=== PATIENT | female | born 2000 | race Caucasian/White ===

== ENCOUNTER 2020-03-04 10:53 | Emergency (ER) | payer OTHER, SELFPAY ==
--- NOTE | 2020-03-04 11:00 | ED.GENADULT ---
HPI - General Adult General Chief complaint: Skin/Abscess/Foreign Body Stated complaint: boil in right armpit Source: patient, family and RN notes reviewed Mode of arrival: ambulatory Limitations: no limitations History of Present Illness HPI narrative: This is a 19 years old female presents to the office for an evaluation of boil under her armpit. Symptoms began three days ago with small boil; which has increase in size since yesterday. Complains of pain with touching. Mother has tried warm compress over affected area; but patient does not let it stay on her due to pain. She is currently on bactrim for UTI. She has down syndrome; no verbal communicate; however she does follow command. Related Data Home Medications Medication Instructions Recorded Confirmed azathioprine 50 mg PO DAILY 03/04/20 03/04/20 clobazam 10 mg PO DAILY 03/04/20 03/04/20 dextroamphetamine-amphetamine 20 mg PO DAILY 03/04/20 03/04/20 guanfacine 1 mg PO DAILY 03/04/20 03/04/20 insulin glargine [Basaglar KwikPen unit SUBCUT 03/04/20 U-100 Insulin] insulin lispro [Admelog U-100 03/04/20 Insulin lispro] lamotrigine 100 mg PO DAILY 03/04/20 03/04/20 methsuximide [Celontin] 300 mg PO DAILY 03/04/20 03/04/20 pravastatin 10 mg PO DAILY 03/04/20 03/04/20 sertraline 50 mg PO DAILY 03/04/20 03/04/20 sulfamethoxazole-trimethoprim 1 tablet PO BID 03/04/20 03/04/20 tacrolimus 1 mg PO DAILY 03/04/20 03/04/20 Allergies Allergy/AdvReac Type Severity Reaction Status Date / Time UNKNOWN ANTIBIOTICS Allergy Uncoded 08/13/12 13:36 Review of Systems Review of Systems: Narrative: CONSTITUTIONAL: Denies fever RESPIRATORY: Denies difficulty breathing GASTROINTESTINAL: Denies abdominal pain, nausea, vomiting GENITOURINARY:Currently on bactrim for UTI SKIN: Reports painful boil under her armpit; admits to history of similar symptoms in the past; but never had to drain it. NEUROLOGIC:She has down syndrome PMFSH Past Medical History Medical History (Updated 03/04/20 @ 11:38 by YVROSE Gerber) ADHD Anxiety Diabetes Down syndrome Seizure Social History Social History (Updated 03/04/20 @ 11:39 by YVROSE Gerber) Smoking status: Never smoker Comments At time of signature, I agree with nursing past medical, surgical, social and family history. There is no relevant family history pertinent to the presenting complaint. Exam Narrative: Exam Narrative: GENERAL: This is a well-nourished, well-developed patient, in no apparent distress. CARDIOVASCULAR: Regular rate and rhythm without murmurs, gallops, or rubs. RESPIRATORY: Clear to auscultation. Breath sounds equal bilaterally. No wheezes, rales, or rhonchi. GASTROINTESTINAL: Abdomen soft, non-tender, nondistended. Bowel sounds are active. No hepato-splenomegaly, or palpable masses. No guarding. SKIN: right below her armpit noted fluctuate lesion, erythema, edematous and tender to palpation. NEURO: awake, alert. Steady gait [place] Coma Scale Eye Opening: Spontaneous 4 [place] Coma Scale Motor: Obeys Commands 6 [place] Coma Scale Verbal: Oriented 5 Procedures Abscess I/D upper extremity: Date of Incision: 03/04/20 Time of Incision: 11:03 Side (if applicable): right Sedation/analgesia: none Local Anesthetic: lidocaine 1% Amount of anesthesia used (mL): 2 Technique: incised with #11 blade Irrigation: Yes Packing used?: iodoform I&D Results: Pus (moderate amount of it) and Blood Abcess I&D Additional Comments: wound is cleaned with Betadine prior to procedure. Wound care and packing provide to patient's mother whom has done it in the past for patient for other wound related. Medical Decision Making Differential Diagnosis Differential Diagnosis: abscess, cellulitis, foliculitis Critical Care Time Critical Care Time Critical Care Time: No Discharge Plan Discharge Clinical Impression: Abscess of skin or subcutane
[2020-03-04 11:28] VITALS: BP 121/73; PULSE 100; RESP 18; TEMP 37.2; O2SAT 98
== END 2020-03-04 11:39 | disposition home or self-care (01) ==
PROVIDERS: Emergency Provider Nurse Practitioner; PCP Family Medicine
DX: L02.411 Cutaneous abscess of right axilla (principal); F90.9 Attention-deficit hyperactivity disorder, unspecified type; F41.9 Anxiety disorder, unspecified; F32.9 Major depressive disorder, single episode, unspecified; G40.909 Epilepsy, unspecified, not intractable, without status epilepticus; Q90.9 Down syndrome, unspecified
CPT/HCPCS: 10061; 87070; 87205; 99213; G0463

== ENCOUNTER 2020-03-09 11:41 | Emergency (ER) | payer OTHER, SELFPAY ==
[2020-03-09 11:46] VITALS: BP 103/66; PULSE 84; RESP 18; TEMP 36.1; O2SAT 99
--- NOTE | 2020-03-09 11:57 | ED.SKABFB ---
HPI - Skin/Abscess/Foreign Bdy General Chief complaint: Skin/Abscess/Foreign Body Stated complaint: pain in underarm Time Seen by Provider: 03/09/20 11:51 Source: patient and RN notes reviewed Mode of arrival: ambulatory Limitations: no limitations History of Present Illness HPI narrative: 19-year-old female with developmental disability presents with concern for painful, red area under her right arm. Reports she was seen in this clinic on Friday and had an abscess drained in that area. Reports she had been on a course of Bactrim for a UTI prior to having the wound drained, finished the Bactrim several days ago. Mother reports the wound drained the day after the I&D, has not drained since. Reports fever yesterday. Patient reports pain in the area. MD complaint: abscess/boil Related Data Home Medications Medication Instructions Recorded Confirmed azathioprine 50 mg PO DAILY 03/04/20 03/09/20 clobazam 10 mg PO DAILY 03/04/20 03/09/20 dextroamphetamine-amphetamine 20 mg PO DAILY 03/04/20 03/09/20 insulin glargine [Basaglar KwikPen 30 unit SUBCUT HS 03/04/20 U-100 Insulin] insulin lispro [Admelog U-100 1 unit TID 03/04/20 Insulin lispro] lamotrigine 100 mg PO DAILY 03/04/20 03/09/20 methsuximide [Celontin] 300 mg PO DAILY 03/04/20 03/09/20 pravastatin 10 mg PO DAILY 03/04/20 03/09/20 sertraline 50 mg PO DAILY 03/04/20 03/09/20 tacrolimus 1 mg PO DAILY 03/04/20 03/09/20 Allergies Allergy/AdvReac Type Severity Reaction Status Date / Time UNKNOWN ANTIBIOTICS Allergy Unknown Uncoded 03/09/20 11:54 Review of Systems Review of Systems: Narrative: CONSTITUTIONAL: Denies malaise, chills, sweats, or fever. CARDIOVASCULAR: Denies chest pain, palpitations, or edema. RESPIRATORY: Denies cough or dyspnea. GASTROINTESTINAL: Denies abdominal pain, nausea, vomiting, diarrhea SKIN: Reports red painful area in right axilla, denies drainage MUSCULOSKELETAL: Denies myalgia. All systems reviewed & are unremarkable except as noted in HPI and below PMFSH Past Medical History Medical History (Updated 03/09/20 @ 12:01 by Constance Short NP) ADHD Anxiety Diabetes Down syndrome Seizure Social History Social History (Updated 03/04/20 @ 11:39 by YVROSE Gerber) Smoking status: Never smoker Comments At time of signature, agree with nursing past medical, surgical, social and family history. There is no relevant family history pertinent to the presenting complaint Exam Narrative: Exam Narrative: GENERAL: Well-appearing, well-nourished, and in no acute distress. HEAD: Normocephalic EYES: PERRLA, conjunctivae clear ENT: Nares clear. Mucous membranes moist. NECK: Supple. CHEST: No respiratory distress. Clear to auscultation. No bony deformities, no asymmetry. Speaks in full sentences. HEART: Regular rate and rhythm. Murmur heard. EXTREMITIES: Right upper extremity has normal range of motion SKIN: Warm, dry, no rash. 2 cm x 7 cm area of erythema, induration, tenderness noted in the right axilla, no fluctuation noted, no drainage noted NEURO: Alert and oriented x3. PSYCH: Normal mood and affect Course Course Emergency Course: Patient is aware of diagnosis, understands and agrees to treatment plan. Anticipatory guidance given. Patient agrees to follow-up as directed and is aware of reasons to seek care at the emergency department. Portions of this record may have been created with voice recognition software Vital Signs Vital signs: Vital Signs Temperature 97.0 F L 03/09/20 11:46 Pulse Rate 84 03/09/20 11:46 Respiratory Rate 18 03/09/20 11:46 Blood Pressure 103/66 03/09/20 11:46 Pulse Oximetry 99 03/09/20 11:46 Temperature 97.0 F L 03/09/20 11:46 Pulse Rate 84 03/09/20 11:46 Respiratory Rate 18 03/09/20 11:46 Blood Pressure 103/66 03/09/20 11:46 Pulse Oximetry 99 03/09/20 11:46 Reviewed. MDM - Skin/Abscess/Foreign Bdy MDM Narrative Medical decision making narrative:
== END 2020-03-09 12:10 | disposition home or self-care (01) ==
PROVIDERS: Emergency Provider Nurse Practitioner; PCP Family Medicine
DX: L02.411 Cutaneous abscess of right axilla (principal); F90.9 Attention-deficit hyperactivity disorder, unspecified type; F41.9 Anxiety disorder, unspecified; E11.9 Type 2 diabetes mellitus without complications; Q90.9 Down syndrome, unspecified; G40.909 Epilepsy, unspecified, not intractable, without status epilepticus; Z79.4 Long term (current) use of insulin
CPT/HCPCS: 99213; G0463